=== PATIENT | female | born 1965 | race American Indian/Alaskan Native ===

== ENCOUNTER 2016-07-19 13:16 | Outpatient (CLI) | payer BC ==
--- NOTE | 2016-07-19 14:13 | Mammography Report ---
Spot compression magnification no focal asymmetry upper outer right breast: Findings: There is no distinct mass or microcalcification noted. Impression: Benign findings. Annual followup with mammogram recommended. BI-RADS CATEGORY: 2 = Benign ACR BI-RADS MAMMOGRAPHIC CODES: 0 = Needs additional imaging evaluation; 1 = Negative; 2 = Benign; 3 = Probably benign; 4 = Suspicious; 5 = Malignant; 6 = Known biopsy-proven malignancy COMMENT: 1. Dense breast tissue, i.e., adenosis, fibrocystic changes, etc., may obscure an underlying neoplasm. 2. Approximately 10% of cancers are not detected with mammography. 3. A negative mammography report should not delay biopsy if a clinically suspicious mass is present. COMMENT: Patient follow-up letters are generated in [employer].
== END 2016-07-19 13:17 | disposition home or self-care (01) ==
LOC: MAMMO 13:16
PROVIDERS: ATTEND Internal Medicine
DX: R92.8 Other abnormal and inconclusive findings on diagnostic imaging of breast (principal)
CPT/HCPCS: G0206-RT

== ENCOUNTER 2016-11-08 12:05 | Outpatient (CLI) | payer BC ==
[2016-11-08 12:16] LABS: Basophils % (Auto) 0.5 % (0.0-1.8); Eosinophils % (Auto) 4.1 % (0.0-4.3); Hematocrit 36.1 % (30.3-42.9); Hemoglobin 11.6 gm/dl (10.1-14.3); Mean Corpuscular HGB Conc 32 % (30-34); Mean Corpuscular Hemoglobin 28 pg (28-32); Mean Corpuscular Volume 86 fl (79-97); Red Blood Count 4.19 M/mm3 (3.65-5.03); Red Cell Distribution Width 15.4 % (13.2-15.2); White Blood Count 5.2 K/mm3 (4.5-11.0)
[2016-11-08 13:01] LABS: Platelet Count TNR K/mm3 (140-440)
[2016-11-11 07:37] LABS: Vitamin D, 25-OH, Total 34 ng/mL (30-100)
== END 2016-11-08 12:06 | disposition home or self-care (01) ==
LOC: LAB 12:05
PROVIDERS: ATTEND Internal Medicine
DX: D50.9 Iron deficiency anemia, unspecified (principal); R73.9 Hyperglycemia, unspecified; Z79.899 Other long term (current) drug therapy
CPT/HCPCS: 36415; 82306; 83036; 83540; 85025

== ENCOUNTER 2017-01-08 11:06 | Outpatient (CLI) | payer BC ==
--- NOTE | 2017-01-08 11:34 | XRay Report ---
CHEST 2 VIEWS INDICATION: Cough. COMPARISON: 08/15/2014. FINDINGS: PA and lateral chest radiographs demonstrate normal cardiomediastinal silhouette. Clear lungs. Intact bones. CONCLUSION: No acute disease in the chest. Thank you for the opportunity to participate in this patient's care.
== END 2017-01-08 11:07 | disposition home or self-care (01) ==
LOC: XRAY 11:06
PROVIDERS: ATTEND Internal Medicine
DX: R05 Cough (principal)
CPT/HCPCS: 71020

== ENCOUNTER 2017-02-19 08:19 | Emergency (ER) | payer BC ==
[2017-02-19 09:02] VITALS: BP 157/96
[2017-02-19 09:46] LABS: Bilirubin,Urine NEG (Negative); Blood,Urine SM (Negative); Ketones,Urine NEG (Negative); Leukocyte Esterase,Urine NEG (Negative); Nitrite,Urine NEG (Negative); Protein,Urine <15 mg/dL mg/dL (Negative); Urobilinogen,Urine < 2.0 mg/dL (<2.0); WBC,Urine < 1.0 /HPF (0.0-6.0)
--- NOTE | 2017-02-19 11:15 | Cat Scan Report ---
CT OF THE ABDOMEN AND PELVIS WITHOUT CONTRAST HISTORY: Urinary retention. TECHNIQUE: Helical CT without contrast. Sagittal and coronal reformatted images. FINDINGS: The uterus is moderately enlarged and lobular consistent with moderate fibroid disease. One of the largest fibroid measures 6-7 cm on the right side of the uterine fundus. There is no evidence for adnexal cyst or mass. The bladder is slightly compressed anteriorly but within normal limits otherwise. Within the limits of a noncontrast exam, the abdominal and pelvic viscera are within normal limits. The liver, biliary system, pancreas, spleen, kidneys, and adrenal glands are unremarkable. The bowel loops are normal caliber and wall thickness. Normal appendix. The aorta is normal caliber. No ascites, bulky adenopathy or inflammatory changes. The lung bases are clear. Normal heart size. No suspicious bony lesion. IMPRESSION: Uterine fibroid disease. Otherwise, unremarkable noncontrast CT of the abdomen and pelvis.
[2017-02-19 11:18] LABS: Anion Gap 17 mmol/L; BUN/Creatinine Ratio 7.14; Blood Urea Nitrogen 5 mg/dL (7-17); Calcium 8.8 mg/dL (8.4-10.2); Carbon Dioxide 25 mmol/L (22-30); Chloride 103.4 mmol/L (98-107); Glucose 90 mg/dL (65-100); Potassium 4.2 mmol/L (3.6-5.0); Sodium 141 mmol/L (137-145)
[2017-02-19 11:37] LABS: Basophils % (Auto) 0.3 % (0.0-1.8); Eosinophils % (Auto) 0.9 % (0.0-4.3); Hematocrit 32.5 % (30.3-42.9); Hemoglobin 10.4 gm/dl (10.1-14.3); Mean Corpuscular HGB Conc 32 % (30-34); Mean Corpuscular Hemoglobin 27 pg (28-32); Mean Corpuscular Volume 84 fl (79-97); Platelet Count 224 K/mm3 (140-440); Red Blood Count 3.86 M/mm3 (3.65-5.03); White Blood Count 6.4 K/mm3 (4.5-11.0)
--- NOTE | 2017-02-19 18:22 | Emergency Department Report ---
Entered by DIXIE CRAIG, acting as scribe for NONA MAZARIEGOS NP. ED Female HPI - General Chief complaint: Urogenital-Female Stated complaint: UNABLE TO PASS URINE Time Seen by Provider: 02/19/17 09:52 Source: patient Mode of arrival: Ambulatory Limitations: No Limitations - History of Present Illness Initial comments: This is a 51 y/o female, nontoxic, well nourished in appearance, no acute signs of distress with no pertinent PMHx presents with urinary retention that began last night at 21:00. Aggravated with nothing and alleviated with urination. Denies dysuria, hematuria, vaginal bleeding, vaginal discharge, urinary urgency and frequency, back pain, abdominal pain, nausea, vomiting, fever, chills, chest pain, SOB, MUNSON or dizziness, numbness, and tingling. Notes she has pressure low pelvic pain when she is unable to urinate. Patient states she last used a catheter on herself this morning, which she released 1200 CC of urine. Reports she had urinary retention once before after being given anaesthesia for outpatient surgery. Denies PMHx of renal stones. LMP 02/05/2017. Allergic to amoxicillin and penicillins. Complaint: other (urinary retention) -: Last night Time: 21:00 Location: other (vaginal area) Radiation: non-radiating Severity: mild Severity scale (0 -10): 0 Consistency: constant Improves with: urination Worsens with: none Are you Now?: No Last Menstrual Period: 02/05/17 EDC: 11/12/17 Associated Symptoms: denies other symptoms. denies: vaginal discharge, vaginal bleeding, abdominal pain, nausea/vomiting, fever/chills, headaches, loss of appetite, dysuria, hematuria, rash, seizure, shortness of breath, syncope, weakness - Related Data Allergies Allergy/AdvReac Type Severity Reaction Status Date / Time amoxicillin Allergy Itching Unverified 02/19/17 08:57 Penicillins Allergy Itching Verified 02/19/17 08:57 ED Review of Systems ROS: Stated complaint: UNABLE TO PASS URINE Other details as noted in HPI Comment: All other systems reviewed and negative Constitutional: denies: chills, fever Eyes: denies: eye pain, eye discharge, vision change ENT: denies: ear pain, throat pain Respiratory: denies: cough, orthopnea, shortness of breath, SOB with exertion, SOB at rest, stridor, wheezing Cardiovascular: denies: chest pain, palpitations, dyspnea on exertion, orthopnea , edema, syncope, paroxysmal nocturnal dyspnea Endocrine: no symptoms reported Gastrointestinal: denies: abdominal pain, nausea, vomiting, diarrhea, constipation, hematemesis, melena, hematochezia Genitourinary: other (urinary retention). denies: urgency, dysuria, frequency, hematuria, discharge, abnormal menses, dyspareunia Musculoskeletal: denies: back pain, joint swelling, arthralgia Skin: denies: rash, lesions Neurological: denies: headache, weakness, paresthesias Psychiatric: denies: anxiety, depression Hematological/Lymphatic: denies: easy bleeding, easy bruising ED Past Medical Hx - Past Medical History Previous Medical History?: Yes Additional medical history: "LOW VITAMIN D ". "LOW IRON" - Surgical History Past Surgical History?: Yes Additional Surgical History: HEMORRHOID SURGERY - Family History Family history: no significant - Social History Smoking Status: Never Smoker Substance Use Type: None ED Physical Exam - General Limitations: No Limitations General appearance: alert, in no apparent distress - Head Head exam: Present: atraumatic, normocephalic - Eye Eye exam: Present: normal appearance, PERRL, EOMI. Absent: scleral icterus, conjunctival injection, nystagmus, periorbital swelling, periorbital tenderness Pupils: Present: normal accommodation - ENT ENT exam: Present: normal exam, normal orophraynx, mucous membranes moist, TM's normal bilaterally, normal external ear exam - Neck Neck exam: Present: normal inspection, full ROM. Absent: tenderness, meningismus, lymphadenopathy, thyromegaly - Respiratory Respiratory exam: Present: normal lung sounds bilaterally. Absent: respiratory distress, wheezes, rales, rhonchi, stridor, chest wall tenderness, accessory muscle use, decreased breath sounds, prolonged expiratory - Cardiovascular Cardiovascular Exam: Present: regular rate, normal rhythm, normal heart sounds. Absent: bradycardia, tachycardia, irregular rhythm, systolic murmur, diastolic murmur, rubs, gallop - GI/Abdominal GI/Abdominal exam: Present: soft, normal bowel sounds. Absent: distended, tenderness, guarding, rebound, rigid, diminished bowel sounds, hyperactive bowel sounds, hypoactive bowel sounds, mass, bruit, pulsatile mass, hernia - Expanded GI/Abdominal Exam Expanded GI/Abdominal exam: Absent: psoas sign, obturator sign, heel tap sign, Rocha's sign, Rovsing's sign, tenderness at [place]'s Point, ascites - Rectal Rectal exam: Present: deferred - Extremities Exam Extremities exam: Present: normal inspection, full ROM, normal capillary refill. Absent: tenderness, pedal edema, joint swelling, calf tenderness - Back Exam Back exam: Present: normal inspection, full ROM. Absent: tenderness, CVA tenderness (R), CVA tenderness (L), muscle spasm, paraspinal tenderness, vertebral tenderness, rash noted - Neurological Exam Neurological exam: Present: alert, oriented X3, CN II-XII intact, normal gait, reflexes normal. Absent: motor sensory deficit - Psychiatric Psychiatric exam: Present: normal affect, normal mood - Skin Skin exam: Present: warm, dry, intact. Absent: rash ED Course Vital Signs 02/19/17 08:59 Temperature 98.8 F Pulse Rate 98 H Respiratory 17 Rate Blood Pressure 157/96 O2 Sat by Pulse 100 Oximetry - Reevaluation(s) Reevaluation #1: 02/19/17 12:18 Patient is speaking in full sentences with no signs of distress noted. - Consultations Consultation #1: 02/19/17 12:17 Dr. Quiroz was consulted about patient history, labs, and imaging. Agrees to the plan of care with d/c and f/u with urology. Consultation #2: 02/19/17 12:17 Patient stated she just had a normal non-painful void in the restroom. ED Medical Decision Making - Lab Data Result diagrams: 02/19/17 10:49 02/19/17 10:49 - Medical Decision Making 51-year-old female that presents with intermittent urinary retention. Patient was examined myself. Patient is clear. Dr. Quiroz has been consulted the patient history, labs, imaging and physical exam and agrees to the plan of care of discharge with follow-up with urology. CT without contrast abdomen/pelvis has been obtained with findings of fibroids but no other abnormalities. Dictated by radiologist. Patient was notified of CT results with no further questions noted by the patient. Patient did state that she urinated for UA exam and negative UA exam. Patient did urinate in the ER without any symptoms of pain. There is no abdominal distention or rigidity. Abdomen is soft and nontender. Patient was referred to follow-up with a urologist in 24 hours or if symptoms continue to worsen return to emergency room as soon as possible. At time time of discharge, the patient does not seem toxic or ill in appearance. No acute signs of distress noted. Patient agrees to discharge treatment plan of care. No further questions noted by the patient. Critical care attestation.: If time is entered above; I have spent that time in minutes in the direct care of this critically ill patient, excluding procedure time. ED Disposition Clinical Impression: Urinary retention Disposition: DC-01 TO HOME OR SELFCARE Is pt being admited?: No Does the pt Need Aspirin: No Condition: Stable Instructions: Acute Urinary Retention in Women (ED) Additional Instructions: Follow-up with a urologist in 24 hours or if symptoms worsen and continue return to emergency room as soon as possible. Referrals: PRIMARY CARE, [Primary Care Provider] - 3-5 Days LELAND CHILDS MD [Staff Physician] - 3-5 Days [facility] [Outside] - 3-5 Days [facility] [Outside] - 3-5 Days NAVEEN CUADRA MD [Staff Physician] - 24 Hours Forms: Work/School Release Form(ED) This documentation as recorded by the RAFA armstrong JASMINE,accurately reflects the service I personally performed and the decisions made by me,NONA MAZARIEGOS, LUCIO.
== END 2017-02-19 12:48 | disposition home or self-care (01) ==
LOC: ED 08:19
DX: R33.9 Retention of urine, unspecified (principal); Z88.1 Allergy status to other antibiotic agents; Z88.0 Allergy status to penicillin
CPT/HCPCS: 36415; 74176; 80048; 81001; 81025; 85025

== ENCOUNTER 2017-12-01 08:44 | Emergency (ER) | payer BC ==
[2017-12-01] MEDS ORDERED: CATAPRES PO ONE ×2 (09:14→11:14)
[2017-12-01 09:55] LABS: BUN/Creatinine Ratio 11; Blood Urea Nitrogen 8 mg/dL (7-17); Calcium 9.4 mg/dL (8.4-10.2); Hemolysis Index 11
[2017-12-01] MEDS ORDERED: TYLENOL PO ONE (10:10)
--- NOTE | 2017-12-01 10:10 | Emergency Department Report ---
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 She denies any history of migraines or recurrent headaches. The patient has a history of borderline hypertension for which she has been using diet and lifestyle changes and monitoring it and is not on any medications. She does present with very elevated blood pressure today but says that there has been a lot of stress at work this morning. She did not take anything for her symptomss prior to presentation. She denies any vision change, slurred speech or any neurological deficits. - ROS Review of Systems: Positive for headache Negative for slurred speech, vision change, fever, nausea or vomiting - Exam Vital Signs: Vital Signs 12/01/17 12/01/17 12/01/17 09:07 09:17 09:57 Temperature 98.6 F Pulse Rate 107 H 94 H Respiratory 20 Rate Blood Pressure 199/98 195/96 Blood Pressure 187/94 [Right] O2 Sat by Pulse 98 Oximetry MSE screening note: Focused history and physical exam performed. Due to findings the following was ordered: The patient was given a clonidine 0.1 mg for her elevated blood pressure. She will have a CT scan of the head without contrast. She'll be given some Tylenol for discomfort at this point. ED Medical Decision Making - Lab Data Result diagrams: 12/01/17 09:23 ED Disposition for MSE Condition: Stable
[2017-12-01 10:12] LABS: Hematocrit 41.4 % (30.3-42.9); Hemoglobin 13.8 gm/dl (10.1-14.3); Mean Corpuscular HGB Conc 33 % (30-34); Mean Corpuscular Hemoglobin 30 pg (28-32); Mean Corpuscular Volume 90 fl (79-97); Platelet Count 217 K/mm3 (140-440); Red Blood Count 4.58 M/mm3 (3.65-5.03); Red Cell Distribution Width 14.9 % (13.2-15.2)
--- NOTE | 2017-12-01 11:07 | Cat Scan Report ---
CT HEAD WITHOUT CONTRAST INDICATION: Headache, hypertension. COMPARISON: None similar. FINDINGS: Noncontrast head CT demonstrates normal, symmetric ventricles and sulci without acute or recent infarct, hemorrhage, mass effect or midline shift. No abnormal extra-axial fluid collections. Posterior fossa structures and basilar cisterns are within normal limits. Symmetric eye globes. Clear paranasal sinuses and mastoid air cells. Intact calvarium. Normal overlying scalp soft tissues. Few radiopaque dental material incidentally noted. CONCLUSION: No acute intracranial CT abnormality, as described. Thank you for the opportunity to participate in this patient's care.
[2017-12-01] MEDS ORDERED: MOTRIN PO ONE (11:14)
[2017-12-01 11:35] LABS: Basophils % (Manual) 0 % (0.0-1.8); Total Cells Counted 100
[2017-12-01 11:36] LABS: Anisocytosis 1+; Ovalocytes Few; Platelet Estimate Cons
[2017-12-01 11:57] VITALS: BP 153/80
--- NOTE | 2017-12-01 12:05 | Emergency Department Report ---
ED Headache HPI - General Chief Complaint: Headache Stated Complaint: MUNSON Time Seen by Provider: 12/01/17 10:04 - History of Present Illness Initial Comments: This is a 52-year-old female nontoxic, well nourished in appearance, no acute signs of distress presents to the ED with c/o of frontal headache that started this morning. Patient describes headache as diffuse with level of 8 out of 10. Patient denies thunderclap headache. Patient denies any radiation of pain. Patient denies any head trauma. Patient denies any visual changes. Patient denies any numbness, tingling, fever, chills, nausea, vomiting, chest pain, shortness of breath, stiff neck. Patient denies any slurred speech or any neurological deficits. Patient denies any radiation of pain. Patient stated allergies to PCN or significant past medical history. Quality: mild Head Injury Location: frontal Recent Head Trauma: no recent headache/trauma Associated Symptoms: denies symptoms. denies: confusion, fatigue, facial pain, fever/chills, flushing, loss of consciousness, nausea/vomiting, nasal congestion , nasal drainage, numbness in legs/feet, rash, seizures, sinus infection, stiff neck, vision changes, weakness Allergies/Adverse Reactions: Allergies amoxicillin Allergy (Unverified 02/19/17 08:57) Itching Penicillins Allergy (Verified 02/19/17 08:57) Itching Home Medications: Ambulatory Orders Ibuprofen [Motrin] 600 mg PO Q8H PRN #30 tablet 12/01/17 amLODIPine [Norvasc] 5 mg PO DAILY #30 tab 12/01/17 ED Review of Systems ROS: Stated complaint: MUNSON Other details as noted in HPI Constitutional: denies: chills, fever Eyes: denies: eye pain, eye discharge, vision change ENT: denies: ear pain, throat pain Respiratory: denies: cough, shortness of breath, wheezing Cardiovascular: denies: chest pain, palpitations Endocrine: no symptoms reported Gastrointestinal: denies: abdominal pain, nausea, diarrhea Genitourinary: denies: urgency, dysuria, discharge Musculoskeletal: denies: back pain, joint swelling, arthralgia Skin: denies: rash, lesions Neurological: headache. denies: weakness, paresthesias Psychiatric: denies: anxiety, depression Hematological/Lymphatic: denies: easy bleeding, easy bruising ED Past Medical Hx - Past Medical History Previous Medical History?: Yes Additional medical history: "LOW VITAMIN D ". "LOW IRON" - Surgical History Past Surgical History?: Yes Additional Surgical History: HEMORRHOID SURGERY - Social History Smoking Status: Never Smoker Substance Use Type: None - Medications Home Medications: Home Medications Medication Instructions Recorded Confirmed Last Taken Type Ibuprofen [Motrin] 600 mg PO Q8H PRN #30 tablet 12/01/17 Unknown Rx amLODIPine [Norvasc] 5 mg PO DAILY #30 tab 12/01/17 Unknown Rx ED Physical Exam - General Limitations: No Limitations General appearance: alert, in no apparent distress - Head Head exam: Present: atraumatic, normocephalic - Eye Eye exam: Present: normal appearance Pupils: Present: normal accommodation - ENT ENT exam: Present: normal exam, mucous membranes moist - Neck Neck exam: Present: normal inspection, full ROM - Respiratory Respiratory exam: Present: normal lung sounds bilaterally. Absent: respiratory distress - Cardiovascular Cardiovascular Exam: Present: regular rate, normal rhythm. Absent: systolic murmur, diastolic murmur, rubs, gallop - GI/Abdominal GI/Abdominal exam: Present: soft, normal bowel sounds - Extremities Exam Extremities exam: Present: normal inspection, full ROM, normal capillary refill. Absent: tenderness - Back Exam Back exam: Present: normal inspection, full ROM. Absent: tenderness, CVA tenderness (R), CVA tenderness (L), muscle spasm, paraspinal tenderness, vertebral tenderness, rash noted - Neurological Exam Neurological exam: Present: alert, oriented X3, CN II-XII intact, normal gait - Expanded Neurological Exam Expanded Patient oriented to: Present: person, place, time Cranial nerves: EOM's Intact: Normal, Gag Reflex: Normal, Facial Sensation: Normal Cerebellar function: Finger to Nose: Normal Upper motor neuron: Pronator Drift: Normal, Sensory Extinction: Normal Sensory exam: Upper Extremity Light Touch: Normal, Upper Extremity Pin Prick: Normal, Upper Extremity Temperature: Normal, UE 2 Point Discrimination: Normal, Lower Extremity Light Touch: Normal, Lower Extremity Pin Prick: Normal, Lower Extremity Temperature: Normal, LE 2 Point Discrimination: Normal Motor strength exam: RUE: 5, LUE: 5, RLE: 5, LLE: 5 Best Eye Response ([place]): (4) open spontaneously Best Motor Response ([place]): (6) obeys commands Best Verbal Response ([place]): (5) oriented [place] Total: 15 - Psychiatric Psychiatric exam: Present: normal affect, normal mood - Skin Skin exam: Present: warm, dry, intact, normal color. Absent: rash ED Course Vital Signs 12/01/17 12/01/17 12/01/17 09:07 09:17 09:57 Temperature 98.6 F Pulse Rate 107 H 94 H Respiratory 20 Rate Blood Pressure 199/98 195/96 Blood Pressure 187/94 [Right] O2 Sat by Pulse 98 Oximetry 12/01/17 12/01/17 12/01/17 11:15 11:22 11:57 Temperature 98.6 F Pulse Rate 72 71 Respiratory 20 20 20 Rate Blood Pressure Blood Pressure 176/87 153/80 [Right] O2 Sat by Pulse 98 100 Oximetry - Reevaluation(s) Reevaluation #1: 12/01/17 12:06 Patient is speaking in full sentences with no signs of distress noted. - Consultations Consultation #1: 12/01/17 12:06 Patient has been consulted with Dr. Wallace about patient history, physical exam, and labs/CT report and examined and screened patient and agrees to ED plan of care and discharge plan of care. ED Medical Decision Making - Lab Data Result diagrams: 12/01/17 09:23 12/01/17 09:23 - Medical Decision Making This is a 52-year-old female that presents with headache and HTN. Patient is stable and was examined by me. Patient is neurologically stable. There is no stiff neck or neck pain. Vital signs are stable. Patient is afebrile. Labs within normal limits. CT scan of head negative and dictated by the radiologist. Patient received motrin and tylenol which the patient stated that headache has subsided and resolved. Patient also receievd Catapress and blood pressure decreased prior to discharge. Patient will be started on Norvasc. She was instructed to keep a daily diary of blood pressure and presented to primary care doctor. Patient was referred to Follow-up with a primary care/ neurologist doctor in 3-5 days or if symptoms worsen and continue return to emergency room as soon as possible. At time of discharge, the patient does not seem toxic or ill in appearance. No acute signs of distress noted. Patient agrees to discharge treatment plan of care. No further questions noted by the patient. Critical care attestation.: If time is entered above; I have spent that time in minutes in the direct care of this critically ill patient, excluding procedure time. ED Disposition Clinical Impression: Hypertension Qualifiers: Hypertension type: unspecified Qualified Code(s): I10 - Essential (primary) hypertension Headache Qualifiers: Headache type: unspecified Headache chronicity pattern: acute headache Intractability: not intractable Qualified Code(s): R51 - Headache Disposition: DC- TO HOME OR SELFCARE Is pt being admited?: No Does the pt Need Aspirin: No Condition: Stable Instructions: Hypertension (ED), Acute Headache (ED) Additional Instructions: Follow-up with a primary care doctor in 3-5 days or if symptoms worsen and continue return to emergency room as soon as possible. Prescriptions: amLODIPine [Norvasc] 5 mg PO DAILY #30 tab Ibuprofen [Motrin] 600 mg PO Q8H PRN #30 tablet PRN Reason: Pain Referrals: PRIMARY CAREMD [Primary Care Provider] - 3-5 Days ALIE HALE MD [Staff Physician] - 3-5 Days [facility] [place] [Outside] - 3-5 Days [facility] [Outside] - 3-5 Days Forms: Work/School Release Form(ED)
== END 2017-12-01 12:23 | disposition home or self-care (01) ==
LOC: ED 08:44
DX: I10 Essential (primary) hypertension (principal); R51 Headache
CPT/HCPCS: 36415; 70450; 80048; 85007; 85025